=== PATIENT | male | born 1965 | race Caucasian/White ===

== ENCOUNTER 2019-05-01 09:00 | Outpatient (CLI) | payer BC, SELFPAY ==
--- NOTE | ~2019-05-01 | MR_ITS ---
EXAMINATION: MR hip RT wo con DATE: 05/01/2019 10:18 INDICATION: Right hip pain TECHNIQUE: Magnetic resonance imaging (MRI) of the right hip was performed without intravenous contr ast. Sequences included full-field axial PD-weighted FS FSE and T1-weighted FSE, coronal of the pelvi s with PD-weighted FS FSE, small field of view of the right hip with axial PD-weighted FS FSE, sagit diomedes PD-weighted FS FSE and coronal PD weighted FS FSE. Additional radial T1-weighted FGR oriented ort hogonal to the acetabular rim were obtained for evaluation of the labrum. COMPARISON: Right hip radiographs dated 04/27/2019 FINDINGS: Bones/labrum/cartilage: Alignment is normal. No fracture, avascular necrosis or pathologic marrow replacing process. At the right femoral neck there is decreased anterosuperior femoral head neck offset with likely secondary h ypertrophic impingement bump. There is partial thickness cartilage loss resulting in mild nonuniform joint space narrowing at the superior aspect of the joint space. Small marginal osteophytes along the acetabulum. The anterior acetabular labrum is diminutive likely related to chronic degeneration. The re is a tear extending from the 1:00 position to the 10:00 position posteriorly. The intervening supe rolateral glenoid labrum at the 12:00 position appears thickened with globular increased intrasubstan ce signal suggesting secondary degeneration. Moderate left-sided and severe right-sided facet osteoar thritis at L5-S1. Mild to moderate left-sided predominant disc height loss at L4-L5. Mild disc height loss at L3-L4. Fluid: Symmetric physiologic amount of fluid within both hip joints. Soft tissues: Normal and symmetric muscle bulk and signal in the pelvis and visualized proximal thighs. The iliopso as, gluteal and proximal hamstring tendons are normal. Limited evaluation of visceral organs of the p mini is unremarkable. No pathologically enlarged pelvic/inguinal lymphadenopathy. IMPRESSION: 1. Mild right hip osteoarthritis with tear/degeneration of the anterosuperior to posterior superior a cetabular labrum. Reviewed, dictated and finalized at location A. S OFFICER IMPRESSION: 1. Mild right hip osteoarthritis with tear/degeneration of the anterosuperior t o posterior superior acetabular labrum.
== END 2019-05-01 09:01 | disposition home or self-care (01) ==
PROVIDERS: PCP Internal Medicine; Visit Provider Orthopaedic Surgery
DX: M25.551 Pain in right hip (principal); M16.11 Unilateral primary osteoarthritis, right hip
CPT/HCPCS: 73721

== ENCOUNTER 2019-05-11 13:23 | Outpatient (CLI) | payer BC, SELFPAY ==
--- NOTE | ~2019-05-11 | XR_ITS ---
EXAMINATION: XR lg joint inject/asp w image DATE: 05/11/2019 14:10 INDICATION: Right hip primary osteoarthritis. TECHNIQUE: A time-out was performed to verify the patient's name, date of , and procedure to b e performed. The procedure including the risks, benefits, and alternatives was discussed with the pat ient. Risks discussed included bleeding and infection. The patient understood the risks and agreed to proceed. The skin overlying the right hip joint was prepped and draped in usual sterile fashion. A nesthetic was administered with 1% lidocaine subcutaneously. A 22 G needle was advanced under fluoro scopic guidance into the joint. Injection of 1 mL of Omnipaque 240 confirmed intra-articular positio n of the needle. Subsequently, injectate consisting of 5 mL 1% lidocaine and 2 mL 10 mg/mL Kenalog w as instilled. The needle was removed and the entry site was cleaned and dressed. There were no imme diate complications. Fluoroscopy exposure time was 0.1 minutes. The total number of images was 1. FINDINGS: Real-time fluoroscopy demonstrates the needle in the right hip joint. Patient's pain prior to procedure:5/10. Patient's pain following the procedure: 3/10. IMPRESSION: 1. Right hip joint injection of local anesthetic and steroid with decrease in the patient's presentin g pain. Reviewed, dictated and finalized at location A. L FURRER IMPRESSION: 1. Right hip joint injection of local anesthetic and steroid with decrease in t he patient's presenting pain.
== END 2019-05-11 13:24 | disposition home or self-care (01) ==
PROVIDERS: PCP Internal Medicine; Visit Provider Orthopaedic Surgery
DX: M16.11 Unilateral primary osteoarthritis, right hip (principal)
CPT/HCPCS: 20610; 77002; Q9966

== ENCOUNTER 2019-12-19 07:26 | Outpatient (RCR) | payer BC, SELFPAY ==
--- NOTE | 2019-12-19 08:18 | PTOPEVAL ---
PHYSICAL THERAPY EVALUATION AND DISCHARGE NOTE Thank you for referring Eliecer Delgado to [facility].? The patient was seen for evaluation of right shoulder pain. He demonstrates WNL strength and ROM and function. He will be discharged from PT at this time. Please review, sign, date and return this plan of care ROSEANN. I agree with and certify that the following plan of care is medically necessary. Referring Physician Date Attending Provider: Ben Rees MD Evaluation Diagnosis right shoulder pain Subjective Information Eliecer was pulling back a Query Text:As Reported By Patient/ compound bow and he felt as Family though there was a tear. Was having difficulty reaching across body and back and felt really tired when holding overhead. He received an injection on 11/29/19 and feels as though he has been good every since stating he has been working more than ever and experiencing no trouble with the right shoulder. Self Report Pain Assessment Right Shoulder(s) Reported Pain Level 0 Pain Score Pain Score 0: Self Report Upper Extremity Range of Motion Scapular/ Shoulder Range of Motion Right Shoulder Flexion - Active 175 Shoulder Abduction - Active 170 Shoulder Medial Rotation - Active T4 Query Text:Reach Behind the Back Shoulder Lateral Rotation - Active T4 Query Text:Reach Behind the Head Scapular/Shoulder Range of Motion None Limitations Upper Extremity Muscle Strength Testing Scapular/Shoulder Right Shoulder Elevation - Upper Trapezius 5 Normal Scapular Retraction - Rhomboid 5 Normal Scapular Retraction - Middle Trapezius 3+ Fair + Scapular Retraction - Lower Trapezius 3+ Fair + Scapular Protraction - Serratus 3+ Fair + Shoulder Flexion Strength 5 Normal Shoulder Extension Strength 5 Normal Shoulder Abduction Strength 5 Normal Shoulder Adduction Strength 5 Normal Shoulder Medial Rotation Strength 5 Normal Shoulder Lateral Rotation Strength 5 Normal Special Tests-Upper Extremity Shoulder Special Tests Empty Can (supraspinatus) Test Negative Right Painful Arc Negative Right Drop Arm Test Negative Right Infraspinatus Test Negative Right Apprehension Test Negative Right Active Compression Test ([place]) Negative Right PT Clinical Summary Eliecer is a 54 yo male presenting to outpatient physical therapy for right shoulder pain. He demonstrates
== END 2019-12-19 09:18 | disposition home or self-care (01) ==
LOC: ANHPT 07:26
PROVIDERS: PCP Internal Medicine; Visit Provider Orthopaedic Surgery
DX: M75.41 Impingement syndrome of right shoulder (principal)
CPT/HCPCS: 97110; 97161

== ENCOUNTER 2019-12-26 12:57 | Outpatient (CLI) | payer BC, SELFPAY ==
--- NOTE | ~2019-12-26 | XR_ITS ---
EXAMINATION: XR lg joint inject/asp w image DATE: 12/26/2019 13:50 INDICATION: Unilateral primary osteoarthritis, right hip. TECHNIQUE: A time-out was performed to verify the patient's name, date of , and procedure to b e performed. The procedure including the risks, benefits, and alternatives was discussed with the pat ient. Risks discussed included bleeding and infection. The patient understood the risks and agreed to proceed. The skin overlying the right hip joint was prepped and draped in usual sterile fashion. A nesthetic was administered with 1% lidocaine subcutaneously. A 22 G needle was advanced under fluoro scopic guidance into the joint. Injection of 1 mL of Omnipaque 240 confirmed intra-articular positio n of the needle. Subsequently, injectate consisting of 5 mL 1% lidocaine and 2 mL 10 mg/mL Kenalog w as instilled. The needle was removed and the entry site was cleaned and dressed. There were no imme diate complications. Fluoroscopy exposure time was 0.0 minutes. The total number of images was 2. FINDINGS: Real-time fluoroscopy demonstrates the needle in the right hip joint. Patient's pain prior to procedure:5/10. Patient's pain following the procedure: 2/10. IMPRESSION: 1. Right hip joint injection of local anesthetic and steroid with decrease in the patient's presentin g pain. Reviewed, dictated and finalized at location A. IMPRESSION: 1. Right hip joint injection of local anesthetic and steroid with decrease in t he patient's presenting pain.
== END 2019-12-26 12:58 | disposition home or self-care (01) ==
PROVIDERS: PCP Internal Medicine; Visit Provider Orthopaedic Surgery
DX: M16.11 Unilateral primary osteoarthritis, right hip (principal)
CPT/HCPCS: 20610; 77002; J3301; Q9966

== ENCOUNTER 2020-02-06 13:41 | Outpatient (CLI) | payer BC, SELFPAY ==
--- NOTE | ~2020-02-06 | US_ITS ---
EXAMINATION: US soft tissue UE RT DATE: 02/06/2020 14:18 INDICATION: Right upper limb lump. TECHNIQUE: Multiple grayscale and Doppler ultrasound images of the right upper limb soft tissues were obtained. COMPARISON: Chest CT 05/10/2014 FINDINGS: There is a 6 mm hypoechoic subcutaneous mass anterior to right shoulder. IMPRESSION: 1. 6 mm subcutaneous mass anterior to right shoulder. This finding is nonspecific, but most likely a sebaceous cyst. Reviewed, dictated and finalized at location A. PAINTER IMPRESSION: 1. 6 mm subcutaneous mass anterior to right shoulder. This finding is nonspecif ic, but most likely a sebaceous cyst.
== END 2020-02-06 13:42 | disposition home or self-care (01) ==
PROVIDERS: PCP Internal Medicine; Visit Provider Orthopaedic Surgery
DX: R22.31 Localized swelling, mass and lump, right upper limb (principal)
CPT/HCPCS: 76882

== ENCOUNTER 2020-02-22 17:18 | Outpatient (CLI) | payer BC, SELFPAY ==
--- NOTE | ~2020-02-22 | MR_ITS ---
EXAMINATION: MR shoulder RT wo con DATE: 02/22/2020 18:03 INDICATION: Right shoulder pain TECHNIQUE: Magnetic resonance imaging (MRI) of the right shoulder was performed without intravenous c ontrast. Sequences included axial PD-weighted FS FSE, coronal oblique PD-weighted FS FSE, coronal obl ique T2-weighted FS FSE, sagittal PD-weighted FS FSE, and sagittal T1-weighted SE. COMPARISON: Right shoulder radiographs dated 11/29/2019 FINDINGS: Coracoacromial arch: The acromion undersurface is flat in morphology (type I). Stopper changes with susceptibility artifac t along the anterior acromion with likely anterior acromioplasty with debridement of portions of the coracoacromial ligament. There is also been prior distal clavicle resection. Rotator cuff: Mild supraspinatus and infraspinatus tendinopathy without discrete tear. There is suggestion of a cou ple possible suture tracks for rotator cuff repair at the junction of the superior facet of the great er tuberosity and the lateral rim of the intertubercular groove. Related with surgical history. Mild subscapularis tendinopathy. Teres minor tendon is normal. Normal rotator cuff muscle bulk and signal. Biceps tendon, glenoid labrum and glenohumeral cartilage: Long head of the biceps tendon is normal. There is linear increased signal extending laterally into t he substance of the 10:00-11:00 position labrum consistent with labral tear. Glenohumeral cartilage i s normal. Fluid: Physiologic amount of fluid in the glenohumeral joint and biceps tendon sheath. No loose osteochondra l bodies. Mild increased fluid signal in the subacromial/subdeltoid bursa consistent with mild bursit is. Bones: Normal marrow signal with no edema, fracture or abnormal marrow replacing process. Marker indicating the region of concern is positioned overlying the anterosuperior aspect of the humeral head near the cephalad aspect of the intertubercular groove. No abnormal masses or fluid collections identified. Th e underlying anterior deltoid muscle appears normal. IMPRESSION: 1. Postoperative changes at the right shoulder including distal clavicle resection, likely anterior a cromioplasty and possible supraspinatus tendon tear repair. Correlate with surgical history. 2. Mild supraspinatus, infraspinatus and subscapularis tendinopathy without discrete tear. 3. Small tear at the posterior superior glenoid labrum. 4. Minimal subacromial/subdeltoid bursitis. 5. No abnormal masses or fluid collections in the region of the marker which position of the normal a ppearing anterior deltoid muscle. Reviewed, dictated and finalized at location A. TYPESETTER IMPRESSION: 1. Postoperative changes at the right shoulder including distal clavicle resect ion, likely anterior acromioplasty and possible supraspinatus tendon tear repai r. Correlate with surgical history. 2. Mild supraspinatus, infraspinatus and subscapularis tendinopathy without dis crete tear. 3. Small tear at the posterior superior glenoid labrum. 4. Minimal subacromial/subdeltoid bursitis. 5. No abnormal masses or fluid collections in the region of the marker which po sition of the normal appearing anterior deltoid muscle.
== END 2020-02-22 17:19 | disposition home or self-care (01) ==
PROVIDERS: PCP Internal Medicine; Visit Provider Orthopaedic Surgery
DX: M75.51 Bursitis of right shoulder (principal); S43.431A Superior glenoid labrum lesion of right shoulder, initial encounter; X58.XXXA Exposure to other specified factors, initial encounter
CPT/HCPCS: 73221

== ENCOUNTER 2021-07-12 16:43 | Emergency (ER) | payer OTHER, SELFPAY ==
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
--- NOTE | ~2021-07-12 | XR_ITS ---
EXAMINATION: XR shoulder RT min 2V DATE: 07/12/2021 18:21 INDICATION: Right shoulder pain TECHNIQUE: AP internally and externally rotated, AP oblique externally rotated and transscapular Y vi ews of the right shoulder were obtained. COMPARISON: None FINDINGS: Postoperative change of prior distal right clavicle resection, acromioplasty and bicipital tenodesis with metallic buttons at the posterior aspect of a lucent tunnel at the proximal metaphyseal region o f the right humerus. Normal alignment. No fracture. Glenohumeral joint space is normal. Visualized p ortions of the lungs are clear. Mild to moderate thoracic spondylosis. Soft tissues are unremarkable. IMPRESSION: Postoperative change of right shoulder as detailed above. No acute osseous abnormality. Reviewed, dictated and finalized at location A. IMPRESSION: Postoperative change of right shoulder as detailed above. No acute osseous abno rmality.
[2021-07-12 16:52] VITALS: BP 141/67; PULSE 81; RESP 16; TEMP 36.7; O2SAT 100
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
[2021-07-12] MEDS: KETOROLAC 30 MG/ML VIAL (*BKC) IM (18:45)
== END 2021-07-12 19:22 | disposition home or self-care (01) ==
PROVIDERS: Emergency Provider Emergency Medicine; PCP Internal Medicine
DX: S19.9XXA Unspecified injury of neck, initial encounter (principal); S49.91XA Unspecified injury of right shoulder and upper arm, initial encounter; J44.9 Chronic obstructive pulmonary disease, unspecified; M81.0 Age-related osteoporosis without current pathological fracture; Z87.891 Personal history of nicotine dependence; M47.812 Spondylosis without myelopathy or radiculopathy, cervical region; Z98.1 Arthrodesis status; V49.40XA Driver injured in collision with unspecified motor vehicles in traffic accident, initial encounter
CPT/HCPCS: 72125; 73030; 96372; 99284; J1885